=== PATIENT | male | born 2000 | race Two or more races ===

== ENCOUNTER 2019-10-24 17:39 | Emergency (ER) | payer OTHER ==
[2019-10-24 18:26] VITALS: TEMP 98.9
--- NOTE | 2019-10-24 18:49 | ED ---
General Adult HPI - General Chief complaint: Trauma Stated complaint: Head injury/lt leg foot-[facility] Time Seen by Provider: 10/24/19 18:37 Source: patient Mode of arrival: ambulatory Limitations: no limitations - History of Present Illness Initial comments: Dictation was produced using [employer] dictation software. please excuse any grammatical, word or spelling errors. Chief Complaint: 19-year-old male presents with knee pain and head pain after incident at work. History of Present Illness: Patient is a 19-year-old male who presents with head pain and knee pain after incident at work. Patient states he works for [employer] business when he got struck in the head and knee with a tree. Patient states it happened approximately 2 hours prior to arrival. Patient complaining of right-sided head pain and left knee pain. Patient states that a tree with a diameter of approximately 18 inches fell on his head. Denies any loss of consciousness. Patient states he has some point tenderness to the right temporal region. Patient also states that tree struck him in the left knee. Patient was able to ambulate after the accident. Denies any neck pain. No other complaints at this time. The ROS documented in this emergency department record has been reviewed and confirmed by me. Those systems with pertinent positive or negative responses have been documented in the HPI. All other systems are other negative and/or noncontributory. PHYSICAL EXAM: General Impression: Alert and oriented x3, not in acute distress HEENT: Normocephalic atraumatic, mild tenderness to palpation over the right temporal area, extra-ocular movements intact, pupils equal and reactive to light bilaterally, mucous membranes moist. Cardiovascular: Heart regular rate and rhythm, S1&S2 audible, no murmurs, rubs or gallops Chest: Lungs clear to auscultation bilaterally, no rhonchi, no wheeze, no rales Abdomen: Bowel sounds present, abdomen soft, non-tender, non-distended, no organomegaly Musculoskeletal: Pulses present and equal in all extremities, no peripheral edema, flexion and extension of the left knee is intact without any pain Motor: no focal deficits noted Neurological: CN II-XII grossly intact, no focal motor or sensory deficits noted Skin: Intact with no visualized rashes Psych: Normal affect and mood ED course: 19 y Old male presents with head pain and knee pain after being struck by a tree. Signs upon arrival shows heart rate of 104, rest of vital signs within acceptable limits. Physical examination does not reveal any s ignificant traumatic injury. Skin the brain and knee x-ray were unremarkable. Patient has minimal tenderness with ambulation. No concerning features to suggest soft tissue or occult injury. Patient will be discharged. He is given referral to orthopedic surgery. Return Prevacid discussed. He is told to seek medical attention if she has any worsening headache, nausea vomiting or focal neurologic deficits. He is otherwise advised follow-up with primary care physician. - Related Data Allergies Allergy/AdvReac Type Severity Reaction Status Date / Time No Known Allergies Allergy Verified 10/24/19 18:26 Review of Systems ROS Statement: Those systems with pertinent positive or pertinent negative responses have been documented in the HPI. ROS Other: All systems not noted in ROS Statement are negative. Past Medical History Past Medical History: No Reported History History of Any Multi-Drug Resistant Organisms: None Reported Past Surgical History: No Surgical Hx Reported Smoking Status: Never smoker Past Alcohol Use History: None Reported Past Drug Use History: None Reported General Exam Limitations: no limitations Course Vital Signs 10/24/19 18:23 Temperature 98.9 F Pulse Rate 104 H Respiratory 18 Rate Blood Pressure 126/75 O2 Sat by Pulse 99 Oximetry Disposition Clinical Impression: Head contusion Disposition: HOME SELF-CARE Condition: Good Instructions (If sedation given, give patient instructions): Scalp Contusion in Adults (ED), Knee Pain (ED) Is patient prescribed a controlled substance at d/c from ED?: No Referrals: Isidro Hernandez MD [Primary Care Provider] - 1-2 days Ben Vizcaino MD [Medical Doctor] - 1-2 days Time of Disposition: 20:18
--- NOTE | 2019-10-24 19:52 | XR ---
EXAMINATION TYPE: XR knee complete LT DATE OF EXAM: 10/24/2019 COMPARISON: NONE HISTORY: Knee pain TECHNIQUE: 3 views FINDINGS: I see no fracture nor dislocation. Joint spaces are normal. There is no sign of knee joint effusion. IMPRESSION: Negative left knee exam.
--- NOTE | 2019-10-24 20:15 | CT ---
EXAMINATION TYPE: CT brain wo con DATE OF EXAM: 10/24/2019 COMPARISON: None HISTORY: Head injury from tree CT DLP: 1189.4 mGycm Automated exposure control for dose reduction was used. Multiple axial sections were obtained of the brain without contrast. Ventricles and sulci appear normal. There is no mass effect nor midline shift. There is no sign of in tracranial hemorrhage. Calvarium is intact. There is no evidence of cerebral edema. IMPRESSION: Normal head CT scan.
[2019-10-24 20:44] VITALS: BP 148/97; PULSE 86; RESP 16
== END 2019-10-24 20:43 | disposition home or self-care (01) ==
LOC: EC 17:39
DX: S00.93XA Contusion of unspecified part of head, initial encounter (principal); M25.562 Pain in left knee; W20.8XXA Other cause of strike by thrown, projected or falling object, initial encounter; Y93.89 Activity, other specified; Y92.69 Other specified industrial and construction area as the place of occurrence of the external cause
CPT/HCPCS: 70450; 99284

== ENCOUNTER → 2024-12-27 | Outpatient (CLI) | payer OTHER | LOC: CPPFTMAIN 16:41 | PROVIDERS: ATTEND Internal Medicine | DX: J45.909 Unspecified asthma, uncomplicated (principal) | CPT/HCPCS: 94060; 94726; 94729 ==